=== PATIENT | female | born 1975 | race Caucasian/White ===

== ENCOUNTER 2018-01-06 03:06 | Observation (INO) | payer MEDICAID ==
[2018-01-06] MEDS: HYDROmorphONE 1 MG/ML SYG IV (03:30)
[2018-01-06 03:51] LABS: ADD MAN DIFF? NO
[2018-01-06] MEDS: SOD CHLORIDE 0.9% 1,000 ML IV ×5 (03:53→23:00)
[2018-01-06] MEDS: ONDANSETRON 4 MG INJ IV (03:53)
[2018-01-06 04:07] LABS: WHITE BLOOD COUNT 14.5 10^3/ul (4.8-10.8)
[2018-01-06 04:07] LABS: BASOPHIL # 0.1 10^3/ul (0.0-0.1); BASOPHILS % 0.5 % (0.0-2.0); EOSINOPHILS % 0.2 % (0.0-7.0); HEMATOCRIT 33.9 % (37.0-47.0); HEMOGLOBIN 10.9 g/dl (12.0-16.0); LYMPHOCYTES # 0.9 10^3/ul (0.8-2.9); LYMPHOCYTES % 5.9 % (15.0-51.0); MEAN CORPUSCULAR HEMOGLOBIN 28.9 pg (29.0-33.0); MEAN CORPUSCULAR HGB CONC 32.2 g/dl (32.0-37.0); MEAN CORPUSCULAR VOLUME 89.9 fl (82.0-101.0); MEAN PLATELET VOLUME 11.8 fl (7.4-10.4); MONOCYTE # 0.8 10^3/ul (0.3-0.9); MONOCYTES % 5.5 % (0.0-11.0); NEUTROPHIL # 12.7 10^3/ul (1.6-7.5); NEUTROPHILS % 87.5 % (39.0-77.0); PLATELET COUNT 279 10^3/UL (140-415); RED BLOOD COUNT 3.77 10^6/ul (4.20-5.40); RED CELL DISTRIBUTION WIDTH 14.6 % (11.5-14.5)
[2018-01-06 04:13] LABS: ALANINE AMINOTRANSFERASE 26 IU/L (13-69); ALBUMIN 4.2 g/dl (3.3-4.9); ALBUMIN/GLOBULIN RATIO 1.27; ALKALINE PHOSPHATASE 82 IU/L (42-121); ANION GAP 13 (8-16); ASPARTATE AMINO TRANSFERASE 33 IU/L (15-46); BILIRUBIN,INDIRECT 0.3 mg/dl (0-1.1); BILIRUBIN,TOTAL 0.3 mg/dl (0.2-1.3); BLOOD UREA NITROGEN 10 mg/dl (7-20); CALCIUM 8.9 mg/dl (8.4-10.2); CARBON DIOXIDE 23 mmol/L (21-31); CHLORIDE 108 mmol/L (97-110); CREATININE 0.47 mg/dl (0.44-1.00); GLUCOSE 126 mg/dl (70-220); LIPASE 52 U/L (23-300); POTASSIUM 3.6 mmol/L (3.5-5.1); SODIUM 140 mmol/L (135-144); TOTAL PROTEIN 7.5 g/dl (6.1-8.1)
[2018-01-06 04:15] LABS: ADD UMIC YES; UR ASCORBIC ACID NEGATIVE (NEGATIVE); UR BILIRUBIN (Dip) NEGATIVE (NEGATIVE); UR BLOOD (Dip) NEGATIVE (NEGATIVE); UR CLARITY CLEAR (CLEAR); UR COLOR YELLOW (YELLOW); UR GLUCOSE (Dip) NEGATIVE (NEGATIVE); UR KETONES (Dip) NEGATIVE (NEGATIVE); UR LEUKOCYTE ESTERASE (Dip) TRACE Leu/ul (NEGATIVE); UR MUCUS FEW /HPF (NONE SEEN); UR NITRITE (Dip) NEGATIVE (NEGATIVE); UR RBC 0 /HPF (0-5); UR SQUAMOUS EPITHELIAL CELL FEW /HPF (FEW); UR TOTAL PROTEIN (Dip) NEGATIVE (NEGATIVE); UR UROBILINOGEN (Dip) NEGATIVE (NEGATIVE); UR WBC 1 /HPF (0-5)
[2018-01-06] MEDS: SOD CHLORIDE 0.9% 100 ML (05:16)
[2018-01-06] MEDS: IOHEXOL 300MG/ML 150 ML BTL (05:16)
[2018-01-06] MEDS ORDERED: SOD CHLORIDE 0.9% 1,000 ML IV (05:31)
[2018-01-06] MEDS ORDERED: ONDANSETRON 4 MG INJ IV ×3 (06:00→10:00)
[2018-01-06] MEDS ORDERED: ACETAMINOPHEN 325 MG TAB PO ×2 (06:00→10:00)
[2018-01-06] MEDS: ERTAPENEM SODIUM 1 GM in SOD CHLORIDE 0.9% 100 ML IVPB (06:23)
[2018-01-06] MEDS ORDERED: KETOROLAC 30 MG INJ IV (06:30)
[2018-01-06] MEDS ORDERED: NACL 0.9% 3 ML SYG IV (06:30)
[2018-01-06] MEDS ORDERED: ONDANSETRON 4 MG TAB PO (06:30)
[2018-01-06] MEDS ORDERED: morphine 2 MG INJ IV (06:30)
[2018-01-06] MEDS ORDERED: BUPIVACAINE 0.5%/EPI (SDV) 30 ML INJ (08:14)
[2018-01-06] MEDS ORDERED: FENTAnyl 50 MCG/ML VIAL (08:33)
[2018-01-06] MEDS ORDERED: ROPIVACAINE 0.5 % 30 ML VIAL (08:33)
[2018-01-06] MEDS ORDERED: ROCURONIUM 50 MG INJ (09:15)
[2018-01-06] MEDS ORDERED: PROPOFOL 20 ML (09:15)
[2018-01-06] MEDS ORDERED: LIDOCAINE 100 MG SYRINGE (09:15)
[2018-01-06] MEDS ORDERED: SUGAMMADEX SODIUM 200 MG/2 ML VIAL IV (09:15)
[2018-01-06] MEDS ORDERED: SUCCINYLCHOLINE CHLORIDE 100 MG/5 ML SYG IV (09:15)
[2018-01-06] MEDS ORDERED: HYDROmorphONE 1 MG/5 ML IV SYRINGE IV ×3 (10:00)
[2018-01-06] MEDS ORDERED: METOCLOPRAMIDE 10 MG INJ IV (10:00)
[2018-01-06] MEDS ORDERED: ALBUTEROL 0.083% (NEB) 2.5 MG/3 ML AMP HHN (10:00)
[2018-01-06] MEDS ORDERED: DIPHENHYDRAMINE 50 MG INJ IV (10:00)
[2018-01-06] MEDS ORDERED: FENTAnyl 50 MCG/ML VIAL IV ×3 (10:00)
[2018-01-06] MEDS ORDERED: MEPERIDINE 25 MG INJ IV (10:00)
[2018-01-06] MEDS ORDERED: OXYCODONE/ACETAMINOPHEN (5/325) TAB PO (10:00)
[2018-01-06] MEDS: PIPER-TAZO 3.375 GM IV (PMX) 100 ML IVPB ×2 (13:25→21:41)
[2018-01-06] MEDS: ENOXAPARIN 40 MG/0.4 ML SYG SC (17:36)
[2018-01-07 05:37] LABS: ADD MAN DIFF? NO
[2018-01-07 05:45] LABS: WHITE BLOOD COUNT 6.1 10^3/ul (4.8-10.8)
[2018-01-07 05:45] LABS: BASOPHIL # 0.1 10^3/ul (0.0-0.1); BASOPHILS % 0.8 % (0.0-2.0); EOSINOPHILS # 0.1 10^3/ul (0.0-0.5); EOSINOPHILS % 1.5 % (0.0-7.0); HEMATOCRIT 29.9 % (37.0-47.0); HEMOGLOBIN 9.4 g/dl (12.0-16.0); LYMPHOCYTES # 1.6 10^3/ul (0.8-2.9); LYMPHOCYTES % 26.6 % (15.0-51.0); MEAN CORPUSCULAR HEMOGLOBIN 28.7 pg (29.0-33.0); MEAN CORPUSCULAR HGB CONC 31.4 g/dl (32.0-37.0); MEAN CORPUSCULAR VOLUME 91.2 fl (82.0-101.0); MEAN PLATELET VOLUME 11.2 fl (7.4-10.4); MONOCYTE # 0.5 10^3/ul (0.3-0.9); MONOCYTES % 7.4 % (0.0-11.0); NEUTROPHIL # 3.9 10^3/ul (1.6-7.5); NEUTROPHILS % 63.4 % (39.0-77.0); PLATELET COUNT 221 10^3/UL (140-415); RED BLOOD COUNT 3.28 10^6/ul (4.20-5.40); RED CELL DISTRIBUTION WIDTH 15.1 % (11.5-14.5)
[2018-01-07] MEDS: PIPER-TAZO 3.375 GM IV (PMX) 100 ML IVPB ×2 (05:53→13:43)
[2018-01-07] MEDS: SOD CHLORIDE 0.9% 1,000 ML IV (05:53)
[2018-01-07 06:22] LABS: ANION GAP 8 (8-16); BLOOD UREA NITROGEN 3 mg/dl (7-20); CALCIUM 7.8 mg/dl (8.4-10.2); CARBON DIOXIDE 22 mmol/L (21-31); CHLORIDE 113 mmol/L (97-110); CREATININE 0.44 mg/dl (0.44-1.00); GLUCOSE 91 mg/dl (70-220); MAGNESIUM 1.9 mg/dl (1.7-2.5); PHOSPHORUS 2.8 mg/dl (2.5-4.9); POTASSIUM 3.3 mmol/L (3.5-5.1); SODIUM 140 mmol/L (135-144)
[2018-01-07 07:00] LABS: HEMOGLOBIN A1C 5.5 % (0-5.9)
[2018-01-07] MEDS: ENOXAPARIN 40 MG/0.4 ML SYG SC (08:40)
[2018-01-07] MEDS: POTASSIUM CHLORIDE (SR) 20 MEQ TAB PO (15:41)
== END 2018-01-07 16:45 | disposition home or self-care (01) ==
LOC: E/R 03:06 → SDS 07:59 → MS1 08:00
DX: K35.80 Unspecified acute appendicitis (principal); D64.9 Anemia, unspecified
CPT/HCPCS: 36415; 74177; 80048; 80053; 81001; 81025; 83036; 83690; 83735; 84100; 85025; 88304; 96374; 99285-25